=== PATIENT | female | born 1995 | race African-American/Black ===

== ENCOUNTER 2018-07-08 20:44 | Emergency (ER) | payer OTHER ==
[~2018-07-08] VITALS: Ht 157.5 cm; Wt 62.6 kg
[2018-07-08 20:47] VITALS: BP 102/72
[2018-07-08] MEDS ORDERED: PROPARACAINE OPHTH 0.5%, 15ML EACHEYE ONE (21:30)
[2018-07-08] MEDS ORDERED: FLUORESCEIN OPHTHALMIC 1 MG STRIP EACHEYE ONE (21:30)
[2018-07-08] MEDS ORDERED: IBUPROFEN 200 MG TABLET ONE (22:51)
[2018-07-08] MEDS ORDERED: HYDROcodone/APAP 5/325 TABLET ONE (22:52)
[2018-07-08] MEDS ORDERED: HYDROcodone/APAP 5/325 TABLET PO ONE (23:00)
[2018-07-08] MEDS ORDERED: IBUPROFEN 200 MG TABLET PO ONE (23:00)
== END 2018-07-08 23:42 | disposition home or self-care (01) ==
LOC: ED 21:42
DX: H16.8 Other keratitis (principal); H57.12 Ocular pain, left eye
CPT/HCPCS: 99283